=== PATIENT | male | born 1935 | race Caucasian/White ===

== ENCOUNTER 2017-12-17 15:58 | Inpatient (IN) | payer MEDICARE ==
[2017-12-17 17:03] LABS: #Basophils 0.1 thou/uL (0.0-0.2); #Eosinphils 0.4 thou/uL (0.0-0.7); #Lymphocytes 1.4 thou/uL (1.20-3.40); #Monocytes 0.3 thou/uL (0.11-0.59); %Basophils 1.4 % (0.0-1.0); %Eosinophils 7.4 % (0.0-10.0); %Lymphocytes 27.3 % (21.0-51.0); %Monocytes 5.8 % (0.0-10.0); %Neutrophils 58.1 % (42.0-75.0); Hemoglobin 12.3 g/dL (14.0-18.0); Mean Corpuscular HGB CONC 33.5 g/dL (32.0-36.0); Mean Corpuscular Hemoglobin 32.6 pg (27.0-31.0); Mean Corpuscular Volume 97.4 fL (78.0-98.0); Mean Platelet Volume 7.4 fL (7.4-10.4); Platelet Count 178 thou/uL (130-400); RBC Distribution Width 11.6 % (11.5-14.5); Red Blood Cell (RBC) Count 3.78 mill/uL (4.70-6.10); White Blood Cell (WBC) Count 5.2 thou/uL (4.8-10.8)
[2017-12-17 17:27] LABS: ALT (SGPT) 14 U/L (8-55); AST (SGOT) 16 U/L (5-34); Albumin 4.1 g/dL (3.4-4.8); Alkaline Phosphatase 64 U/L (40-150); Anion Gap 15 mmol/L (10-20); BUN (Urea Nitrogen) 29 mg/dL (8.4-25.7); Bilirubin, Total 0.4 mg/dL (0.2-1.2); CK (CPK) 66 U/L (30-200); Calc. Creatinine Clearance 0 mL/min (70-130); Calcium 9.4 mg/dL (7.8-10.44); Carbon Dioxide 24 mmol/L (23-31); Chloride 106 mmol/L (98-107); Estimated GFR-MDRD 53; Glucose 203 mg/dL (83-110); Potassium 4.8 mmol/L (3.5-5.1); Protein, Total 7.1 g/dL (5.8-8.1); Sodium 140 mmol/L (136-145)
[2017-12-17 17:31] LABS: CKMB 1.6 ng/mL (0-6.6); Troponin I 0.023 ng/mL (< 0.028)
[2017-12-17 17:54] LABS: PTT 26.5 SEC (22.9-36.1); Prothrombin Time 13.6 SEC (12.0-14.7)
[2017-12-17] MEDS ORDERED: Ondansetron HCl/PF 4 MG/2 ML Vial IVP PRN (18:42)
[2017-12-17] MEDS ORDERED: Milk Of Magnesia 30 ML UDCUP PO PRN (18:42)
[2017-12-17] MEDS ORDERED: Labetalol HCl 100 MG/20 ML VIAL SLOW IVP PRN (18:42)
[2017-12-17] MEDS ORDERED: Acetaminophen 325 MG TAB PO PRN (18:42)
--- NOTE | 2017-12-17 18:51 | CT ---
CT BRAIN WITHOUT CONTRAST: 12/17/17 HISTORY: Fall, dizziness, unsteady gait. COMPARISON: CT brain 01/14/13. FINDINGS: There is high density material within the right maxillary sinus markedly progressed from the prior ex amination. There is a large subdural hematoma on the left which measures up to 2 cm with left to righ t shift approximately 1 cm with early subfalcine herniation. Prior right frontal and parietal craniec jannette. Extensive microvascular ischemic changes, chronic. Moderate atrophy. IMPRESSION: 1. Large left convexity subdural hematoma measuring up to 2 cm with 1 cm left to right shift and early subfalcine herniation. 2. High density material in the right maxillary sinus which may reflect hemorrhage or more likel y inspissated material from chronic infection. Code IRINA Andersen at 5:32 p.m. POS: [facility]
[2017-12-17 23:58] VITALS: BMI 25.3
[2017-12-18] MEDS: Sodium Chloride 0.9% 1,000 ML IV SCH ×3 (02:48→20:29)
[2017-12-18 06:03] LABS: #Eosinphils 0.3 thou/uL (0.0-0.7); #Lymphocytes 1.3 thou/uL (1.20-3.40); #Monocytes 0.3 thou/uL (0.11-0.59); #Neutrophils 3.6 thou/uL (1.40-6.50); %Basophils 0.9 % (0.0-1.0); %Eosinophils 5.2 % (0.0-10.0); %Lymphocytes 22.8 % (21.0-51.0); %Monocytes 5.4 % (0.0-10.0); %Neutrophils 65.7 % (42.0-75.0); Hemoglobin 11.6 g/dL (14.0-18.0); Mean Corpuscular Hemoglobin 32.7 pg (27.0-31.0); Mean Corpuscular Volume 98.9 fL (78.0-98.0); Mean Platelet Volume 7.5 fL (7.4-10.4); Platelet Count 204 thou/uL (130-400); RBC Distribution Width 11.6 % (11.5-14.5); Red Blood Cell (RBC) Count 3.56 mill/uL (4.70-6.10); White Blood Cell (WBC) Count 5.5 thou/uL (4.8-10.8)
[2017-12-18 06:27] LABS: Anion Gap 11 mmol/L (10-20); BUN (Urea Nitrogen) 24 mg/dL (8.4-25.7); Calc. Creatinine Clearance 57 mL/min (70-130); Calcium 9.4 mg/dL (7.8-10.44); Carbon Dioxide 27 mmol/L (23-31); Chloride 104 mmol/L (98-107); Estimated GFR-MDRD 56; Glucose 195 mg/dL (83-110); Potassium 4.2 mmol/L (3.5-5.1); Sodium 138 mmol/L (136-145)
[2017-12-18] MEDS ORDERED: Acetaminophen 650 MG Suppository PR PRN (07:03)
[2017-12-18] MEDS ORDERED: Chloraseptic Spray 180 ml Bottle PO PRN (07:03)
[2017-12-18] MEDS ORDERED: Loratadine 10 MG TAB PO PRN (07:03)
[2017-12-18] MEDS ORDERED: Diabetic Tussin 200 MG/10 ML UDCUP PO PRN (07:03)
[2017-12-18] MEDS ORDERED: Eucerin (Mineral Oil/Petrolatum,White) 30 gm Jar TOP PRN (07:03)
[2017-12-18] MEDS ORDERED: Sodium Chloride 0.65% Nasal 44 ML BOT EA NARE PRN (07:03)
[2017-12-18] MEDS ORDERED: Artificial Tears 18 DROP/0.9 ML EA EYE PRN (07:03)
[2017-12-18] MEDS ORDERED: Ondansetron ODT 4 MG TAB SL PRN (07:03)
[2017-12-18] MEDS ORDERED: Mag-Al 1200 mg/1200 mg/30 ML UDCUP PO PRN (07:03)
[2017-12-18] MEDS ORDERED: Temazepam 15 MG CAP PO PRN (07:03)
[2017-12-18] MEDS ORDERED: Loperamide HCl 2 MG CAP PO PRN (07:03)
[2017-12-18] MEDS ORDERED: Senokot 8.6 MG TAB PO PRN (07:03)
[2017-12-18] MEDS ORDERED: Dextrose 50% Abboject 50 ML SYRINGE SLOW IVP PRN (07:04)
[2017-12-18] MEDS ORDERED: Dextrose 5% in Water 1,000 ML IV PRN (07:04)
[2017-12-18] MEDS ORDERED: HumaLOG 300 UNITS/3 ML VIAL SC PRN (07:04)
[2017-12-18] MEDS ORDERED: Pravastatin Sodium 40 MG TAB PO SCH (09:00)
[2017-12-18] MEDS ORDERED: Non-Formulary Item 1 EACH (Losartan Potassium [Losartan Potassium] 50 MG) PO SCH (09:00)
--- NOTE | 2017-12-18 09:10 | PRG ---
DATE OF SERVICE: 12/18/2017 Mr. 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 Neurologically, he has been stable. He reports [id number]-tc headache. This manifests predominantly as an unsteady gait. He does have a history of subdural hematoma evacuated on the con tralateral side. Of note, he has been on aspirin and Plavix. That has been stopped and he has also received platelets. Plan is to proceed tomorrow with jennifer hole evacuation of the subdural hematoma. I discussed the risks, benefits, and alternatives with the patient. He understands and offered info rmed consent for the procedure.
--- NOTE | 2017-12-18 09:19 | CT ---
CT BRAIN WITHOUT CONTRAST: Date: 12/18/17 HISTORY: Intracerebral hemorrhage. FINDINGS/IMPRESSION: No significant interval change is seen since the previous day's exam. POS: [facility]
[2017-12-18] MEDS: Carvedilol 6.25 MG TAB PO SCH ×2 (10:07→20:28)
[2017-12-18] MEDS: Amiodarone 200 MG TAB PO SCH (10:08)
[2017-12-18] MEDS: Losartan 25 MG TAB PO SCH (10:08)
[2017-12-18] MEDS: Famotidine/PF 20 mg/2ml Vial SLOW IVP SCH (10:10)
[2017-12-18] MEDS: Spironolactone 25 MG TAB PO SCH (10:10)
--- NOTE | 2017-12-18 12:01 | CON ---
PRIMARY CARE PHYSICIAN: Dr. Tracee Elliott. PRIMARY ATTENDING: Dr. Daron Johnson. REASON FOR CONSULTATION: Medical comanagement. HISTORY OF PRESENT ILLNESS: An 82-year-old male, who provided history that he fell down on 8. He was on Plavix for the last 10 years. Yesterday, he noticed that his right foot was dragging. He was unstable and he was feeling dizzy with some headache. He was also slightly confused and that is why his called primary care physician's office, who advised them to go to ER for evaluation. The patient denies any new fall yesterday. When I saw this morning, patient was completely fine. He denies any headache. He reports that he had similar subdural similar blood in his brain, required surgery in the past. Patient does have word finding difficulty, but patient is not attributing any new problem because he always has this type of issue with word finding difficulty. In the emergency room, the patient had CT brain and CT brain showed large left convexity subdural hem atoma with a 1 cm left to right shift and early subfalcine herniation. It also incidentally showed h igh density material in the right maxillary sinus. Patient was evaluated by neurosurgeon yesterday and he was admitted to stroke floor. This morning, w e are consulted for medical comanagement. Patient denies any chest pain, palpitation, shortness of b reath. He denies any UTI symptoms. He feels chronic constipation. He denies any diarrhea, melena, hematochezia. He denies any dysphagia. Patient reports that he gets sometimes fall at home from [facility], but he denies any palpitation or syncope or other head injury. PAST MEDICAL HISTORY: Coronary artery disease, history of NM, diabetes type 2, hypertension, dyslipi demia, diabetic neuropathy, history of intracranial bleed required craniectomy, paroxysmal atrial fib rillation, history of ischemic cardiomyopathy, and chronic systolic heart failure PAST SURGICAL HISTORY: CABG x3, bilateral knee arthroscopy, thyroidectomy, hematoma removed from the brain required a craniotomy, cardiac catheterization with stent placement. PAST PSYCHIATRIC HISTORY: Reviewed and negative. SOCIAL HISTORY: Patient is and lives at home with his . He drinks alcohol occasionally. He denies any smoking. He denies any other illicit drug abuse. FAMILY HISTORY: No strong family history of premature coronary artery disease, stroke or cancer. REVIEW OF SYSTEMS: The following complete review of systems was negative, unless otherwise mentioned in the HPI or below: Constitutional: Weight loss or gain, ability to conduct usual activities. Skin: Rash, itching. Eyes: Double vision, pain. ENT/Mouth: Nose bleeding, neck stiffness, pain, tenderness. Cardiovascular: Palpitations, dyspnea on exertion, orthopnea. Respiratory: Shortness of breath, wheezing, cough, hemoptysis, fever or night sweats. Gastrointestinal: Poor appetite, abdominal pain, heartburn, nausea, vomiting, constipation, or diarr hea. Genitourinary: Urgency, frequency, dysuria, nocturia. Musculoskeletal: Pain, swelling. Neurologic/Psychiatric: Anxiety, depression. Allergy/Immunologic: Skin rash, bleeding tendency. Please see my HPI for pertinent positive and negative. All other review of systems reviewed and nega tive except as mentioned in the HPI. ALLERGIES: No known drug allergy. CURRENT HOME MEDICATIONS: Amiodarone 100 mg daily, Coreg 6.25 mg p.o. b.i.d., Plavix 75 mg p.o. chin y, Pepcid 20 mg p.o. daily, glipizide 2.5 mg p.o. daily, losartan 50 mg p.o. daily, metformin 1000 mg p.o. b.i.d., pravastatin 40 mg p.o. daily, and Aldactone 25 mg p.o. daily. EMERGENCY ROOM COURSE: Reviewed. PHYSICAL EXAMINATION: VITAL SIGNS: On arrival to the emergency room, blood pressure 164/73, pulse 55, respiratory rate 14, temperature 98.2, saturation 96% on room air, weight 83.9 kilograms. GENERAL: Patient is currently alert, awake, no obvious acute distress. HEAD: Normocephalic. The patient does have scar from previous craniotomy. EYES: Pupils round, reactive to light. Extraocular muscle intact. ENT: Oropharynx within normal limits. Moist mucous membranes. No oral lesion. No pharyngeal eryth lavonne, no exudate. NECK: Supple, no JVD, no thyromegaly, no carotid bruit, no jugular venous distention. LUNGS: Clear to auscultation without any rhonchi or rales. CARDIAC: S1 and S2 regular. No murmur, no gallop, no rub. ABDOMEN: Soft, bowel sounds present, nontender, nondistended. No organomegaly, no mass, no suprapub ic tenderness. BACK: Unremarkable, no CVA tenderness. EXTREMITIES: Upper extremity passive movement of all joints are normal. Lower extremities: No robina a. Good peripheral pulsation. SKIN: No skin rash. HEMATOLOGIC: No lymphadenopathy. PSYCHIATRIC: Normal affect. NEUROLOGIC: The patient is alert, oriented x3. Speech is normal, but he was having word finding dif ficulty. Motor and sensation grossly intact. He does not have any obvious pronator drift. His refl exes symmetrical. Gait unable to assess. No cerebellar sign. SIGNIFICANT LABORATORY DATA: EKG showing sinus bradycardia, first degree AV block, nonspecific intra ventricular block, nonspecific ST-T changes in lateral lead. CT brain showing large left convexity s ubdural hematoma up to 2 cm with 1 cm left to right shift and subfalcine herniation, high density mat erial in the right maxillary sinus. CBC: WBC 5.2, hemoglobin 12.3, platelet 178. INR 1.0. BMP: Sodium 140, potassium 4.8, chloride 10 6, carbon dioxide 24, anion gap 15, BUN 29, creatinine 1.31, glucose 203, calcium 9.4. LFT: AST 16, ALT 14, alkaline phosphatase 64, albumin 4.1. CK 66, CK-MB 1.6, troponin 0.023, BNP 312.3. ASSESSMENT AND PLAN: 1. Acute subdural hematoma. Patient has large left-sided subdural hematoma. A 2 cm in size with 1 cm left to right shift and early subfalcine herniation. He has dragging of the right lower extremity . Neuro surgeon managing there is plan for jennifer hole evacuation tomorrow. We will monitor neurologi donna status. We will avoid any kind of blood thinners or antiplatelet medication. 2. Ischemic cardiomyopathy with chronic systolic heart failure. The patient is currently euvolemic. The patient will continue Coreg 6.25 mg p.o. b.i.d., losartan 50 mg p.o. daily, Aldactone 25 mg p.o . daily. 3. Diabetes type 2. If patient's oral intake is resumed today, then we will continue glipizide 2.5 mg p.o. daily, metformin 1000 mg p.o. b.i.d. We will also continue with insulin as per sliding scale per protocol. Diabetic diet will be given. 4. Hypertension. Continue Coreg 6.25 mg p.o. b.i.d., losartan 50 mg p.o. daily, Aldactone 25 mg p.o . daily and as p.r.n. basis hydralazine and labetalol. 5. Unspecified arrhythmia. Patient is taking Cordarone 100 mg p.o. daily, which we will continue wh ile in hospital. Mild acute kidney injury, improved with IV fluid. 6. Anemia, normocytic, normochromic with slight macrocytosis. We will continue with folic acid 1 mg p.o. daily, vitamin B12 at 1000 mcg p.o. daily. 7. Deep venous thrombosis prophylaxis. SCD boots. 8. Gastrointestinal prophylaxis. Pepcid 20 mg IV daily. 9. Code status: The patient is FULL CODE. The patient's is surrogate decision maker. Disposition plan based on clinical course. We are expecting patient's stay in hospital more than 2 m idnights. After bur hole evacuation, the patient will need PT/OT and possible placement to rehab if needed. Thank you for the consult. We will follow up with you while in hospital.
[2017-12-18] MEDS: metFORMIN 500 MG TAB PO SCH (16:58)
[2017-12-18] MEDS: Milk Of Magnesia 30 ML UDCUP PO PRN (17:51)
[2017-12-18] MEDS: Atorvastatin Calcium 10 MG TAB PO SCH (20:28)
--- NOTE | 2017-12-19 07:43 | EKG ---
Test Reason : STAT Blood Pressure : / mmHG Vent. Rate : 061 BPM Atrial Rate : 061 BPM P-R Int : 226 ms QRS Dur : 124 ms QT Int : 434 ms P-R-T Axes : 089 -23 103 degrees QTc Int : 436 ms Sinus rhythm with sinus arrhythmia with 1st degree A-V block Non-specific intra-ventricular conduction delay Poor anterior R wave progression Abnormal ECG When compared with ECG of 29-OCT-2012 02:04, T wave inversion more evident in Lateral leads QT has shortened Confirmed by DR. Laney WILLIAM ([id number]) on 12/19/2017 7:43:00 AM Referred By: ANTHONY Confirmed By:DR. Laney WILLIAM
[2017-12-19] MEDS: hydrALAZINE 20 MG/ML VIAL SLOW IVP PRN ×3 (08:49→17:32)
[2017-12-19] MEDS: Amiodarone 200 MG TAB PO SCH (08:53)
[2017-12-19] MEDS ORDERED: Thrombin 5000 UNITS/5 ML VIAL ONE (10:00)
[2017-12-19] MEDS ORDERED: Lidocaine 0.5%/Epinephrine 1:200,000 50 ml Vial ONE (10:00)
[2017-12-19] MEDS: metFORMIN 500 MG TAB PO SCH ×2 (10:10→17:29)
[2017-12-19] MEDS: Losartan 25 MG TAB PO SCH ×2 (10:11→20:11)
[2017-12-19] MEDS: Cyanocobalamin (Vitamin B-12) 1,000 MCG TAB PO SCH (10:11)
[2017-12-19] MEDS: Folic Acid 1 MG TAB PO SCH (10:11)
[2017-12-19] MEDS: Spironolactone 25 MG TAB PO SCH (10:12)
[2017-12-19] MEDS: Sodium Chloride 0.9% 1,000 ML IV SCH ×2 (10:13→15:02)
[2017-12-19] MEDS: glipiZIDE 5 MG TAB PO SCH (10:19)
--- NOTE | 2017-12-19 10:49 | PDOC.PN ---
- Subjective Encounter Start Date: 12/19/17 Encounter Start Time: 09:45 -: old records requested/rev Patient seen and examined for subdural hematoma and medical problem, he is NPO for possible surgery today, he is on IVF, family bedside. No new complaints. No overnight events - Objective Resuscitation Status: Resuscitation Status FULL:Full Resuscitation MAR Reviewed: Yes Vital Signs & Weight: Vital Signs (12 hours) Temp Pulse Resp BP BP Pulse Ox 12/19/17 09:39 165/79 H 12/19/17 08:49 56 L 180/86 H 12/19/17 08:00 97.6 F 56 L 16 180/86 H 97 12/19/17 04:00 97.6 F 56 L 16 154/63 H 97 12/19/17 00:00 98.6 F 50 L 16 139/50 L 98 Weight Weight 188 lb I&O: 12/18/17 12/19/17 12/20/17 06:59 06:59 06:59 Intake Total 249 880 Balance 249 880 Result Diagrams: 12/18/17 05:07 12/18/17 05:07 EKG Reviewed by me: Yes (nsr) Phys Exam - Physical Examination Constitutional: NAD HEENT: PERRLA, moist MMs, sclera anicteric Neck: no JVD, supple Respiratory: no wheezing, no rales, no rhonchi Cardiovascular: RRR, no significant murmur, no rub Gastrointestinal: soft, non-tender, no distention, positive bowel sounds Musculoskeletal: no edema, pulses present Neurological: non-focal, normal sensation, moves all 4 limbs Psychiatric: normal affect, A&O x 3 Skin: no rash, normal turgor Dx/Plan (1) Acute subdural hematoma Code(s): S06.5X9A - TRAUM SUBDR HEM W LOC OF UNSP DURATION, INIT Status: Acute (2) CAD (coronary artery disease) Code(s): I25.10 - ATHSCL HEART DISEASE OF [place] CORONARY ARTERY W/O ANG PCTRS Status: Chronic (3) Diabetes type 2, controlled Code(s): E11.9 - TYPE 2 DIABETES MELLITUS WITHOUT COMPLICATIONS Status: Chronic (4) Dyslipidemia Code(s): E78.5 - HYPERLIPIDEMIA, UNSPECIFIED Status: Chronic (5) Hypertension Code(s): I10 - ESSENTIAL (PRIMARY) HYPERTENSION Status: Chronic - Plan cont current plan of care, plan discussed w/ family, DVT proph w/SCDs * for his high BP, will change losartan 50 mg po bid * today possible burhole surgery for SDH * discussed with family * medication reviewed as below * symptomatic treatment. Review of Systems - Review of Systems Eyes: negative: Pain, Vision Change, Conjunctivae Inflammation, Eyelid Inflammation, Redness, Other ENT: negative: Ear Pain, Ear Discharge, Nose Pain, Nose Discharge, Nose Congestion, Mouth Pain, Mouth Swelling, Throat Pain, Throat Swelling, Other Respiratory: negative: Cough, Dry, Shortness of Breath, Hemoptysis, SOB with Excertion, Pleuritic Pain, Sputum, Wheezing Cardiovascular: negative: chest pain, palpitations, orthopnea, paroxysmal nocturnal dyspnea, edema, light headedness, other Gastrointestinal: negative: Nausea, Vomiting, Abdominal Pain, Diarrhea, Constipation, Melena, Hematochezia, Other Genitourinary: negative: Dysuria, Frequency, Incontinence, Hematuria, Retention , Other Musculoskeletal: negative: Neck Pain, Shoulder Pain, Arm Pain, Back Pain, Hand Pain, Leg Pain, Foot Pain, Other Skin: negative: Rash, Lesions, Fabian, Bruising, Other - Medications/Allergies Allergies/Adverse Reactions: Allergies Allergy/AdvReac Type Severity Reaction Status Date / Time No Known Allergies Allergy Verified 12/18/17 00:00 Medications: Current Medications Acetaminophen (Tylenol) 650 mg PO Q6H PRN PRN Reason: Fever > 101 or Headache Acetaminophen (Tylenol) 650 mg FL Q4H PRN PRN Reason: Headache/Fever or Mild Pain Al Hydroxide/Mg Hydroxide (Maalox) 15 ml PO Q4H PRN PRN Reason: Heartburn or Indigestion Amiodarone HCl (Cordarone) 100 mg PO DAILY [facility] Last Admin: 12/19/17 08:53 Dose: 100 mg Artificial Tears (Tears Naturale) 0 drop EA EYE PRN PRN PRN Reason: Dry Eyes Atorvastatin Calcium (Lipitor) 10 mg PO HS [facility] Last Admin: 12/18/17 20:28 Dose: 10 mg Carvedilol (Coreg) 6.25 mg PO BID [facility] Last Admin: 12/18/17 20:28 Dose: 6.25 mg Cyanocobalamin (Vitamin B-12) 1,000 mcg PO DAILY [facility] Last Admin: 07/05/18 10:11 Dose: 1,000 mcg Dextrose/Water (Dextrose 50%) 25 gm SLOW IVP PRN PRN PRN Reason: Hypoglycemia Famotidine (Pepcid) 20 mg SLOW IVP DAILY [facility] Last Admin: 12/18/17 10:10 Dose: 20 mg Folic Acid (Folvite) 1 mg PO DAILY [facility] Last Admin: 12/19/17 10:11 Dose: 1 mg Glipizide (Glucotrol) 2.5 mg PO DAILY [facility] Last Admin: 12/19/17 10:19 Dose: Not Given Glucagon (Glucagon) 1 mg IM PRN PRN PRN Reason: Hypoglycemia Guaifenesin (Robitussin Sf) 200 mg PO Q4H PRN PRN Reason: Cough Hydralazine HCl (Apresoline) 5 mg SLOW IVP Q15MIN PRN PRN Reason: SBP GREATER THAN 160 Last Admin: 12/19/17 08:49 Dose: 5 mg Sodium Chloride (Normal Saline 0.9%) 1,000 mls @ 80 mls/hr IV .[id number] [facility] Last Admin: 12/19/17 10:13 Dose: 1,000 mls Dextrose/Water (D5w) 1,000 mls @ 0 mls/hr IV .Q0M PRN; As Directed PRN Reason: Hypoglycemia Insulin Human Lispro (Humalog) 0 units SC .MODERATE SLIDING SC PRN PRN Reason: Moderate Correctional Scale Insulin Human Lispro (Humalog) 0 units SC .BEDTIME SLIDING SC PRN PRN Reason: Bedtime Correctional Scale Last Admin: 12/18/17 21:45 Dose: 2 unit Labetalol HCl (Normodyne) 10 mg SLOW IVP Q4H PRN PRN Reason: SBP GREATER THAN 160 Loperamide HCl (Imodium) 2 mg PO PRN PRN PRN Reason: Diarrhea/Loose Stools Loratadine (Claritin) 10 mg PO DAILYPRN PRN PRN Reason: Sinus Symptoms Losartan Potassium (Cozaar) 50 mg PO DAILY [facility] Last Admin: 12/19/17 10:11 Dose: 50 mg Magnesium Hydroxide (Milk Of Magnesium) 30 ml PO DAILYPRN PRN PRN Reason: Constipation Last Admin: 12/18/17 17:51 Dose: 30 ml Metformin HCl (Glucophage) 1,000 mg PO BID-[facility] Last Admin: 12/19/17 10:10 Dose: 1,000 mg Mineral Oil/White Petrolatum (Eucerin Cream) 0 gm TOP BIDPRN PRN PRN Reason: Dry Skin Ondansetron HCl (Zofran) 4 mg IVP Q6H PRN PRN Reason: Nausea/Vomiting Ondansetron HCl (Zofran Odt) 4 mg SL Q6H PRN PRN Reason: Nausea/Vomiting Phenol (Chloraseptic [place] 180 Ml Bot) 0 ml PO PRN PRN PRN Reason: Sore Throat Senna (Senokot) 2 tab PO HSPRN PRN PRN Reason: Constipation Sodium Chloride (Flush - Normal Saline) 10 ml IVF PRN PRN PRN Reason: Saline Flush Last Admin: 12/18/17 20:29 Dose: 10 ml Sodium Chloride ([place] Nasal [place] 0.65%) 0 ml EA NARE QIDPRN PRN PRN Reason: Nasal Congestion Spironolactone (Aldactone) 25 mg PO DAILY [facility] Last Admin: 12/19/17 10:12 Dose: 25 mg Temazepam (Restoril) 15 mg PO HSPRN PRN PRN Reason: Insomnia
[2017-12-19] MEDS ORDERED: CEFAZOLIN/Water 2 GM/20 ML SYRINGE ONE (11:28)
[2017-12-19] MEDS ORDERED: Fentanyl 100 MCG/2 ML VIAL ONE (11:46)
--- NOTE | 2017-12-19 11:49 | PRG ---
DATE OF SERVICE: 12/19/2017 Mr. Rey is an 82-year-old gentleman admitted for unsteady gait and mild headache. He had a head CT performed which shows a large left-sided subdural hematoma. Most of this is chronic in nature and subacute nature and therefore I believed amenable to bur hole drainage. Our plans are to move forwa rd with jennifer hole drainage this morning. Neurologically, he has been stable. I met with him and his family today to answer questions. After surgery today he will go to the ICU for overnight observati on. From there, he will transition to the floor. We will get PT and OT involved. If need be, he ma y need inpatient rehab, otherwise, we will work to transition him back home.
[2017-12-19] MEDS ORDERED: Ondansetron HCl/PF 4 MG/2 ML Vial ONE (12:00)
[2017-12-19] MEDS ORDERED: Lidocaine 1% PF 5 ML VIAL ONE (12:00)
[2017-12-19] MEDS ORDERED: PHENYLEPHRINE-NS 100 MCG/ML 10 ML SYRINGE ONE (12:00)
[2017-12-19] MEDS ORDERED: PROPOFOL 200 MG/20 ML VIAL ONE (12:00)
[2017-12-19] MEDS ORDERED: Glycopyrrolate 0.2 MG/ML 5 ML SYRINGE ONE (12:00)
[2017-12-19] MEDS ORDERED: Dexamethasone 20 MG/5 ML VIAL ONE (12:00)
[2017-12-19] MEDS ORDERED: ePHEDrine/0.9% NaCl/PF SYRINGE 50 mg/10 ml ONE (12:00)
[2017-12-19] MEDS ORDERED: Bacitracin Zinc Ointment 30 gm TUBE ONE (12:27)
[2017-12-19] MEDS ORDERED: Promethazine HCl 25 MG/ML VIAL SLOW IVP PRN (12:55)
[2017-12-19] MEDS ORDERED: Promethazine HCl 25 MG/ML VIAL IM PRN (12:55)
[2017-12-19] MEDS ORDERED: HYDROmorphone 2 MG/ML VIAL SLOW IVP PRN (12:55)
[2017-12-19] MEDS ORDERED: Morphine Sulfate 2 MG/ML SYRINGE SLOW IVP PRN (12:55)
[2017-12-19] MEDS ORDERED: Ondansetron HCl/PF 4 MG/2 ML Vial IVP PRN (12:55)
--- NOTE | 2017-12-19 13:03 | OP ---
DATE OF PROCEDURE: 12/17/2017 SURGEON: Daron Johnson M.D. CLINICAL DOCUMENTATION SPECIALIST: Faisal Hernández PA-C. INDICATION: Prevent neurologic decline. DIAGNOSIS: Large left acute on subacute on chronic subdural hematoma, left. PROCEDURE: Left frontal jennifer hole with evacuation of hematoma. ANESTHESIA: General. TECHNIQUE: The patient was brought into the operating room and placed under general anesthesia. He was placed on the table in supine position. A small linear incision was planned over the left fronta l bone. After prepping and draping and after an appropriate operative pause, the incision was create d. A single bur hole was placed with the binder operator. A cruciate incision was placed within the dura . There was immediate egress of subacute and chronic blood from the bur hole site. This was irrigat ed copiously with saline. A red rubber tube was then placed within the subdural space and brought ou t through a separate puncture site. The wound was then closed in anatomic layers and a pressure dres sing was applied. There were no known procedural complications.
[2017-12-19] MEDS ORDERED: Acetaminophen/Codeine 30-300mg Tablet PO PRN ×2 (14:14)
[2017-12-19] MEDS: Carvedilol 6.25 MG TAB PO SCH ×2 (14:23→20:12)
[2017-12-19] MEDS: Famotidine/PF 20 mg/2ml Vial SLOW IVP SCH (14:23)
[2017-12-19] MEDS: HumaLOG 300 UNITS/3 ML VIAL SC PRN ×2 (14:54→21:41)
[2017-12-19] MEDS: CEFAZOLIN/Water 2 GM/20 ML SYRINGE SLOW IVP SCH (20:11)
[2017-12-19] MEDS: Atorvastatin Calcium 10 MG TAB PO SCH (20:12)
[2017-12-20] MEDS: hydrALAZINE 20 MG/ML VIAL SLOW IVP PRN (02:21)
[2017-12-20] MEDS: CEFAZOLIN/Water 2 GM/20 ML SYRINGE SLOW IVP SCH ×3 (05:33→20:55)
[2017-12-20] MEDS: HumaLOG 300 UNITS/3 ML VIAL SC PRN ×2 (05:44→12:12)
--- NOTE | 2017-12-20 07:23 | PRG ---
DATE OF SERVICE: 12/20/2017 Mr. Rey is 1 day out from jennifer hole evacuation of subdural hematoma. He was on antiplatelet agen ts and had a low density subdural collection over the left hemisphere. The drain is in place and has been emptied recently. The drain output is not recorded on our electronic chart, however. The vital signs that I see recorded overnight do not include any fevers and blood pressures have been in the 130s to 160s. As I entered the room this morning, Mr. Rey is lying flat. He is awake. He is alert, he answers questions appropriately. He knows his last name, he knows where he is. He is anxious to get up and out of the hospital. I do not see a CT scan from this morning. My plan is to order a CT scan on Mr. Rey. We will assess the level decompression of the subdural space with a drain in place. I will look for the drain output to be recorded sometime this morning and then we can make a decision between operative cases when to remove the drain. Our team will shade ve it if it is due to be removed and then we gently mobilized to lunch time when he can be sitting up and eating. After lunch if he is safe with activities of daily living, we can start looking for dis charge or at least transferred to the floor.
--- NOTE | 2017-12-20 09:18 | CT ---
CT OF HEAD NONCONTRAST: COMPARISON: 12/18/17. CLINICAL HISTORY: Subdural hemorrhage, intracerebral hemorrhagic stroke, followup. FINDINGS: Interval jennifer hole formation with subdural drainage catheter placement from the left frontal approach with decreased volume of patient's known, previously diagnosed, subdural hemorrhage. There is a mix ed density residual component, with thickness of 1.5 cm currently demonstrated. There is mild rightw danitza subfalcine herniation, which measures 6 mm. Parenchymal atrophy with ex vacuo dilatation of the ventricular system is present. There is mild chronic microvascular ischemic disease. Redemonstratio n of prior right frontoparietal craniotomy. Redemonstration of mixed-density opacification of the im aged right maxillary sinus. IMPRESSION: Interval placement of a left frontal approach subdural drain with partial evacuation of patient's rec ently diagnosed subdural hemorrhage. Moderate, mixed density volume component does remain with persi stence of approximately 6 mm rightward subfalcine herniation. Continued imaging followup is warrantsandra d. POS: [facility]
[2017-12-20] MEDS: metFORMIN 500 MG TAB PO SCH ×2 (09:33→18:00)
[2017-12-20] MEDS: glipiZIDE 5 MG TAB PO SCH (09:34)
[2017-12-20] MEDS: Losartan 25 MG TAB PO SCH ×2 (09:34→20:56)
[2017-12-20] MEDS: Folic Acid 1 MG TAB PO SCH (09:35)
[2017-12-20] MEDS: Cyanocobalamin (Vitamin B-12) 1,000 MCG TAB PO SCH ×2 (09:35→09:39)
[2017-12-20] MEDS: Spironolactone 25 MG TAB PO SCH (09:35)
[2017-12-20] MEDS: Amiodarone 200 MG TAB PO SCH (09:36)
[2017-12-20] MEDS: Carvedilol 6.25 MG TAB PO SCH ×2 (09:38→20:56)
[2017-12-20] MEDS: Sodium Chloride 0.9% 1,000 ML IV SCH ×2 (09:39→21:15)
[2017-12-20] MEDS: Famotidine/PF 20 mg/2ml Vial SLOW IVP SCH (09:43)
--- NOTE | 2017-12-20 11:20 | PDOC.PN ---
- Subjective Encounter Start Date: 12/20/17 Encounter Start Time: 10:00 -: old records requested/rev Patient seen and examined. No new complaints. No overnight events s/p bur hole surgery - Objective Resuscitation Status: Resuscitation Status FULL:Full Resuscitation MAR Reviewed: Yes Vital Signs & Weight: Vital Signs (12 hours) Temp Pulse Resp BP 12/20/17 11:00 16 12/20/17 09:38 176/77 H 12/20/17 08:00 98.7 F 12/20/17 04:40 76 168/75 H 12/20/17 04:00 98.2 F 12/20/17 02:21 65 167/76 H 12/20/17 00:00 97.8 F Weight Admit Weight 186 lb 11.704 oz Weight 188 lb 3.2 oz Most Recent Monitor Data Heart Rate from ECG 65 NIBP 159/72 NIBP BP-Mean 84 Respiration from ECG 27 SpO2 98 I&O: 12/19/17 12/20/17 12/21/17 06:59 06:59 06:59 Intake Total 3215 420 Output Total 1550 900 Balance 1665 -480 Result Diagrams: 12/18/17 05:07 12/18/17 05:07 Additional Labs: Accuchecks 12/20/17 12/19/17 12/19/17 05:43 21:23 17:29 POC Glucose 166 H 222 H 145 H 12/19/17 12/19/17 12/18/17 14:37 06:09 21:37 POC Glucose 187 H 136 H 234 H 12/18/17 12/18/17 16:44 10:59 POC Glucose 216 H 169 H Radiology Reviewed by me: Yes (CT brain) EKG Reviewed by me: Yes (nsr) Phys Exam - Physical Examination Constitutional: NAD drain+ HEENT: PERRLA, moist MMs, sclera anicteric Neck: no JVD, supple Respiratory: no wheezing, no rales, no rhonchi Cardiovascular: RRR, no significant murmur, no rub Gastrointestinal: soft, non-tender, no distention, positive bowel sounds Musculoskeletal: no edema, pulses present Neurological: non-focal, normal sensation Lymphatic: no nodes Psychiatric: normal affect, A&O x 3 Skin: no rash, normal turgor Dx/Plan (1) Acute subdural hematoma Code(s): S06.5X9A - TRAUM SUBDR HEM W LOC OF UNSP DURATION, INIT Status: Acute Comment: s/p bur-hole surgery (2) CAD (coronary artery disease) Code(s): I25.10 - ATHSCL HEART DISEASE OF [place] CORONARY ARTERY W/O ANG PCTRS Status: Chronic (3) Diabetes type 2, controlled Code(s): E11.9 - TYPE 2 DIABETES MELLITUS WITHOUT COMPLICATIONS Status: Chronic (4) Dyslipidemia Code(s): E78.5 - HYPERLIPIDEMIA, UNSPECIFIED Status: Chronic (5) Hypertension Code(s): I10 - ESSENTIAL (PRIMARY) HYPERTENSION Status: Chronic - Plan cont current plan of care * medication reviewed as below * symptomatic treatment * continue post operative care as per neurosurgery * medically stable for now. Review of Systems - Review of Systems ENT: negative: Ear Pain, Ear Discharge, Nose Pain, Nose Discharge, Nose Congestion, Mouth Pain, Mouth Swelling, Throat Pain, Throat Swelling, Other Respiratory: negative: Cough, Dry, Shortness of Breath, Hemoptysis, SOB with Excertion, Pleuritic Pain, Sputum, Wheezing Cardiovascular: negative: chest pain, palpitations, orthopnea, paroxysmal nocturnal dyspnea, edema, light headedness, other Gastrointestinal: negative: Nausea, Vomiting, Abdominal Pain, Diarrhea, Constipation, Melena, Hematochezia, Other Genitourinary: negative: Dysuria, Frequency, Incontinence, Hematuria, Retention , Other Musculoskeletal: negative: Neck Pain, Shoulder Pain, Arm Pain, Back Pain, Hand Pain, Leg Pain, Foot Pain, Other Skin: negative: Rash, Lesions, Fabian, Bruising, Other - Medications/Allergies Allergies/Adverse Reactions: Allergies Allergy/AdvReac Type Severity Reaction Status Date / Time No Known Allergies Allergy Verified 12/18/17 00:00 Medications: Current Medications Acetaminophen (Tylenol) 650 mg PO Q6H PRN PRN Reason: Fever > 101 or Headache Acetaminophen (Tylenol) 650 mg WI Q4H PRN PRN Reason: Headache/Fever or Mild Pain Acetaminophen/Codeine Phosphate (Tylenol #3) 1 tab PO Q3H PRN PRN Reason: Mild Pain (1-3) Acetaminophen/Codeine Phosphate (Tylenol #3) 2 tab PO Q3H PRN PRN Reason: Moderate Pain (4-6) Al Hydroxide/Mg Hydroxide (Maalox) 15 ml PO Q4H PRN PRN Reason: Heartburn or Indigestion Amiodarone HCl (Cordarone) 100 mg PO DAILY [facility] Last Admin: 12/20/17 09:36 Dose: 100 mg Artificial Tears (Tears Naturale) 0 drop EA EYE PRN PRN PRN Reason: Dry Eyes Atorvastatin Calcium (Lipitor) 10 mg PO HS [facility] Last Admin: 12/19/17 20:12 Dose: 10 mg Carvedilol (Coreg) 6.25 mg PO BID [facility] Last Admin: 12/20/17 09:38 Dose: 6.25 mg Cefazolin Sodium (Ancef) 2 gm SLOW IVP 0400,1200,2000 [facility] Last Admin: 12/20/17 05:33 Dose: 2 gm Cyanocobalamin (Vitamin B-12) 1,000 mcg PO DAILY [facility] Last Admin: 12/20/17 09:39 Dose: 1,000 mcg Dextrose/Water (Dextrose 50%) 25 gm SLOW IVP PRN PRN PRN Reason: Hypoglycemia Famotidine (Pepcid) 20 mg SLOW IVP DAILY [facility] Last Admin: 12/20/17 09:43 Dose: 20 mg Folic Acid (Folvite) 1 mg PO DAILY [facility] Last Admin: 12/20/17 09:35 Dose: 1 mg Glipizide (Glucotrol) 2.5 mg PO DAILY [facility] Last Admin: 12/20/17 09:34 Dose: 2.5 mg Glucagon (Glucagon) 1 mg IM PRN PRN PRN Reason: Hypoglycemia Guaifenesin (Robitussin Sf) 200 mg PO Q4H PRN PRN Reason: Cough Hydralazine HCl (Apresoline) 5 mg SLOW IVP Q15MIN PRN PRN Reason: SBP GREATER THAN 160 Last Admin: 12/20/17 02:21 Dose: 5 mg Sodium Chloride (Normal Saline 0.9%) 1,000 mls @ 80 mls/hr IV .[id number] [facility] Last Admin: 12/20/17 09:39 Dose: 1,000 mls Dextrose/Water (D5w) 1,000 mls @ 0 mls/hr IV .Q0M PRN; As Directed PRN Reason: Hypoglycemia Insulin Human Lispro (Humalog) 0 units SC .MODERATE SLIDING SC PRN PRN Reason: Moderate Correctional Scale Last Admin: 12/20/17 05:44 Dose: 2 unit Insulin Human Lispro (Humalog) 0 units SC .BEDTIME SLIDING SC PRN PRN Reason: Bedtime Correctional Scale Last Admin: 12/18/17 21:45 Dose: 2 unit Labetalol HCl (Normodyne) 10 mg SLOW IVP Q4H PRN PRN Reason: SBP GREATER THAN 160 Last Admin: 12/20/17 04:40 Dose: 10 mg Loperamide HCl (Imodium) 2 mg PO PRN PRN PRN Reason: Diarrhea/Loose Stools Loratadine (Claritin) 10 mg PO DAILYPRN PRN PRN Reason: Sinus Symptoms Losartan Potassium (Cozaar) 50 mg PO BID [facility] Last Admin: 12/20/17 09:34 Dose: 50 mg Magnesium Hydroxide (Milk Of Magnesium) 30 ml PO DAILYPRN PRN PRN Reason: Constipation Last Admin: 12/18/17 17:51 Dose: 30 ml Metformin HCl (Glucophage) 1,000 mg PO BID[facility] Last Admin: 12/20/17 09:33 Dose: 1,000 mg Mineral Oil/White Petrolatum (Eucerin Cream) 0 gm TOP BIDPRN PRN PRN Reason: Dry Skin Morphine Sulfate (Morphine) 2 mg SLOW IVP Q1HR PRN PRN Reason: Moderate breakthrough pain Ondansetron HCl (Zofran) 4 mg IVP Q6H PRN PRN Reason: Nausea/Vomiting Ondansetron HCl (Zofran Odt) 4 mg SL Q6H PRN PRN Reason: Nausea/Vomiting Phenol (Chloraseptic [place] 180 Ml Bot) 0 ml PO PRN PRN PRN Reason: Sore Throat Senna (Senokot) 2 tab PO HSPRN PRN PRN Reason: Constipation Sodium Chloride ([place] Nasal [place] 0.65%) 0 ml EA NARE QIDPRN PRN PRN Reason: Nasal Congestion Sodium Chloride (Flush - Normal Saline) 10 ml IVF PRN PRN PRN Reason: Saline Flush Spironolactone (Aldactone) 25 mg PO DAILY [facility] Last Admin: 12/20/17 09:35 Dose: 25 mg Temazepam (Restoril) 15 mg PO HSPRN PRN PRN Reason: Insomnia
[2017-12-20] MEDS: Milk Of Magnesia 30 ML UDCUP PO PRN (18:00)
[2017-12-20] MEDS: Atorvastatin Calcium 10 MG TAB PO SCH (20:55)
[2017-12-21] MEDS: CEFAZOLIN/Water 2 GM/20 ML SYRINGE SLOW IVP SCH (04:57)
[2017-12-21 07:36] LABS: Hemoglobin 12.1 g/dL (14.0-18.0); Mean Corpuscular HGB CONC 34.2 g/dL (32.0-36.0); Mean Corpuscular Hemoglobin 33.2 pg (27.0-31.0); Mean Corpuscular Volume 97.1 fL (78.0-98.0); Red Blood Cell (RBC) Count 3.66 mill/uL (4.70-6.10); White Blood Cell (WBC) Count 7.1 thou/uL (4.8-10.8)
[2017-12-21 07:53] LABS: Band 4 % (5-11); Eosinophils 3 % (0-10); Lymphocytes 23 % (21-51); MDiff Complete? YES; Metamyelocyte 1 % (0-0); Monocytes 7 % (0-10); Neutrophil 57 % (42-75); Platelet Count 176 thou/uL (130-400); Reactive Lymphocytes 3 % (0-10)
[2017-12-21 07:54] LABS: Anion Gap 15 mmol/L (10-20); BUN (Urea Nitrogen) 26 mg/dL (8.4-25.7); Calc. Creatinine Clearance 56 mL/min (70-130); Carbon Dioxide 22 mmol/L (23-31); Chloride 103 mmol/L (98-107); Estimated GFR-MDRD 55; Glucose 135 mg/dL (83-110); Potassium 4.6 mmol/L (3.5-5.1); Sodium 135 mmol/L (136-145)
--- NOTE | 2017-12-21 08:12 | PRG ---
DATE OF SERVICE: 12/21/2017 NEUROSURGERY NOTE SUBJECTIVE: Mr. Rey is 2 days out from jennifer hole evacuation of subdural hematoma. We took the d rain out yesterday and transferred him out of the ICU to floor care. Mr. Rey has been doing well . He is ambulatory yesterday, he has been tolerating a general diet. This morning, he verbalizes th at he wants to go home. On my examination, Mr. Rey is doing quite well and I do not find any new neurological deficits. If he is ambulatory, tolerating a general diet, voiding spontaneously and safe walking, then he can b e discharged this morning.
[2017-12-21 08:17] VITALS: TEMP 97.6
[2017-12-21] MEDS ORDERED: Famotidine 20 MG TAB PO SCH (09:00)
[2017-12-21] MEDS: metFORMIN 500 MG TAB PO SCH (10:12)
[2017-12-21 10:17] VITALS: BP 118/58
[2017-12-21] MEDS: Spironolactone 25 MG TAB PO SCH (10:17)
[2017-12-21] MEDS: Amiodarone 200 MG TAB PO SCH (10:17)
[2017-12-21] MEDS: glipiZIDE 5 MG TAB PO SCH (10:17)
[2017-12-21] MEDS: Carvedilol 6.25 MG TAB PO SCH (10:17)
[2017-12-21] MEDS: Losartan 25 MG TAB PO SCH (10:17)
[2017-12-21] MEDS: Folic Acid 1 MG TAB PO SCH (10:17)
--- NOTE | 2017-12-21 11:21 | DIS ---
DATE OF ADMISSION: 12/17/2017 DATE OF DISCHARGE: 12/21/2017 PRIMARY CARE PHYSICIAN: Dr. Earl Easley. DISCHARGE DISPOSITION: Home. PRIMARY DISCHARGE DIAGNOSIS: Subdural hematoma, status post jennifer hole evacuation. SECONDARY DISCHARGE DIAGNOSES: Hypertension, dyslipidemia, diabetes type 2, coronary artery disease. PRIMARY PROCEDURE/OPERATION: Jennifer hole evacuation. RADIOLOGICAL INVESTIGATION: CT brain showed subdural hematoma. SIGNIFICANT LABORATORY DATA: WBC 7.1, hemoglobin 12.1, platelet 176, INR 1.0. Sodium 135, potassium 4.6, BUN 26, creatinine 1.27 and calcium 9.0. DISCHARGE MEDICATIONS: Amiodarone 100 mg p.o. daily, Coreg 6.25 mg p.o. b.i.d., Pepcid 20 mg p.o. da valentín, Glucotrol 2.5 mg p.o. daily, losartan 50 mg p.o. daily, metformin 1000 mg p.o. b.i.d., pravastat in 40 mg p.o. daily and Aldactone 25 mg p.o. daily. CONTRAINDICATIONS: The patient is not on antiplatelet medication because of subdural hematoma. TEST RESULTS PENDING ON DISCHARGE: None. ALLERGIES: No known drug allergy. DISCHARGE PLAN: Post hospital, patient will follow up with Dr. Tracee Elliott and Dr. Johnson as instru cted. HOSPITAL COURSE: An 82-year-old male who was admitted by Dr. Johnson for subdural hematoma. Patient w as admitted under neurosurgeon and Sound Team was consulted for medical comanagement. This patient h ad a fall and subsequently he was having headache and altered mental status. He was found with left- sided subdural hematoma with midline shift and early subfalcine herniation. The patient required bur r hole evacuation. After surgery, he was observed in CCU for 24 hours and subsequently he was transf erred to surgical floor. His drain was removed. His surgical site is clean and healthy. The patien t is ambulatory. His pain is controlled. Today, neurosurgeon planning to discharge him. I specific ally advised this patient to discontinue Plavix until clearance from neurosurgeon. Rest of medicatio n, he will continue as per previous. Rolling walker was arranged. He is hemodynamically stable. The patient is seen and examined at [facility] today. PHYSICAL EXAMINATION: VITAL SIGNS: Currently, temperature 97.6, pulse 56, respiratory rate 18, saturation 96% on room air, blood pressure 118/58, weight 188 pounds. GENERAL: Patient is currently alert, awake, no obvious acute distress. HEAD: Surgical site is clean and intact with dressing. EYES: Pupils round and reactive to light. ENT: Oropharynx within normal limit. NECK: Supple, no JVD, no thyromegaly, no carotid bruit. LUNGS: Clear to auscultation without any rhonchi or rales. CARDIAC: S1 and S2 regular without any murmur. ABDOMEN: Soft and benign without any tenderness. EXTREMITIES: No edema. NEUROLOGIC: Nonfocal examination. His gait is stable. REVIEW OF SYSTEMS: Reviewed with him and negative. Patient is planned for discharge by primary team and we will sign off.
--- NOTE | 2017-12-21 15:49 | EKG ---
Test Reason : SYNCOPE Blood Pressure : / mmHG Vent. Rate : 053 BPM Atrial Rate : 053 BPM P-R Int : 220 ms QRS Dur : 128 ms QT Int : 446 ms P-R-T Axes : 071 -18 116 degrees QTc Int : 418 ms Sinus bradycardia with sinus arrhythmia with 1st degree A-V block Non-specific intra-ventricular conduction block T wave abnormality, consider lateral ischemia Abnormal ECG Confirmed by BRENNA KUMAR, SHAHEDE ([id number]), editor managing newspaper JOSE DANIEL SINGH ([id number]) on 12/21/2017 3:48:55 PM Referred By: Confirmed By:SHAHEED CEJA MD
== END 2017-12-21 08:45 | disposition home or self-care (01) | DRG 25 ==
LOC: ERS 15:58 → 2SE 22:56 → CCU 12-19 12:31 → SURG A 12-20 13:09
PROVIDERS: ADMIT Neurological Surgery; ATTEND Neurological Surgery
PROC: 00C43ZZ Extirpation of Matter from Intracranial Subdural Space, Percutaneous Approach (ICD-10-PCS; principal; 2017-12-17)
DX: S06.5X9A Traumatic subdural hemorrhage with loss of consciousness of unspecified duration, initial encounter (principal); G93.5 Compression of brain; I50.22 Chronic systolic (congestive) heart failure; E78.5 Hyperlipidemia, unspecified; I25.10 Atherosclerotic heart disease of native coronary artery without angina pectoris; Z79.01 Long term (current) use of anticoagulants; I25.2 Old myocardial infarction; E11.40 Type 2 diabetes mellitus with diabetic neuropathy, unspecified; I48.0 Paroxysmal atrial fibrillation; I25.5 Ischemic cardiomyopathy; I11.0 Hypertensive heart disease with heart failure; Z95.1 Presence of aortocoronary bypass graft; Z95.5 Presence of coronary angioplasty implant and graft; E89.0 Postprocedural hypothyroidism; D64.9 Anemia, unspecified; W01.0XXA Fall on same level from slipping, tripping and stumbling without subsequent striking against object, initial encounter; Y93.9 Activity, unspecified; Y92.9 Unspecified place or not applicable; Y99.9 Unspecified external cause status
CPT/HCPCS: 36415; 36416; 36430; 70450; 80048; 80053; 82550; 82553; 83880; 84484; 85025; 85610; 85730; 86850; 86900; 86901; 93005; 93010; G8978-GP-CK; G8979-GP-CJ; G8987-GO-CI; G8988-GO-CI; G8989-GO-CI; J0360; J1100; J2001; J2405; J2704; J3010; P9035; S0028

== ENCOUNTER 2018-01-02 15:32 | Outpatient (CLI) | payer MEDICARE ==
--- NOTE | 2018-01-02 15:58 | CT ---
CT BRAIN WITHOUT CONTRAST: Date: 01/02/18 HISTORY: Follow-up subdural hematoma. COMPARISON: CT dated 12/20/17. FINDINGS: The left subdural hematoma has slightly increased in size, although is not as hyperdense as the prior examination, measures up to 14.0 mm at the level of the superior aspect of the lateral ventricles, p reviously approximately 12.0 mm. The drain has been removed. Small locule of gas anteriorly, although improved. Prior right craniotomy changes. There is some midline shift, approximately 1.0 cm, measure d at the foramen of Monro, slightly increased. No acute infarction. Chronic right maxillary sinusitis. IMPRESSION: Mild size increase of the left subdural hematoma and left to right midline shift. POS: [facility]
== END 2018-01-02 15:33 | disposition home or self-care (01) ==
LOC: TBSIIMAG 15:32
PROVIDERS: ATTEND Neurological Surgery
DX: S06.5X0A Traumatic subdural hemorrhage without loss of consciousness, initial encounter (principal)
CPT/HCPCS: 70450

== ENCOUNTER 2018-01-06 17:46 | Observation (INO) | payer MEDICARE ==
[2018-01-06 18:31] LABS: #Eosinphils 0.3 thou/uL (0.0-0.7); #Lymphocytes 1.4 thou/uL (1.20-3.40); #Monocytes 0.4 thou/uL (0.11-0.59); #Neutrophils 3.9 thou/uL (1.40-6.50); %Basophils 0.7 % (0.0-1.0); %Eosinophils 4.7 % (0.0-10.0); %Lymphocytes 23.5 % (21.0-51.0); %Neutrophils 65.1 % (42.0-75.0); Hemoglobin 11.9 g/dL (14.0-18.0); Mean Corpuscular HGB CONC 34.5 g/dL (32.0-36.0); Mean Corpuscular Volume 95.6 fL (78.0-98.0); Mean Platelet Volume 7.4 fL (7.4-10.4); Platelet Count 221 thou/uL (130-400); RBC Distribution Width 11.9 % (11.5-14.5); Red Blood Cell (RBC) Count 3.61 mill/uL (4.70-6.10); White Blood Cell (WBC) Count 5.9 thou/uL (4.8-10.8)
[2018-01-06 18:49] LABS: INR-International Normal Ratio 0.9; Prothrombin Time 12.1 SEC (12.0-14.7)
[2018-01-06 18:58] LABS: ALT (SGPT) 12 U/L (8-55); AST (SGOT) 22 U/L (5-34); Albumin 4.1 g/dL (3.4-4.8); Alkaline Phosphatase 66 U/L (40-150); Anion Gap 19 mmol/L (10-20); BUN (Urea Nitrogen) 32 mg/dL (8.4-25.7); Bilirubin, Total 0.4 mg/dL (0.2-1.2); CKMB 1.1 ng/mL (0-6.6); Calc. Creatinine Clearance 0 mL/min (70-130); Calcium 9.3 mg/dL (7.8-10.44); Carbon Dioxide 20 mmol/L (23-31); Chloride 104 mmol/L (98-107); Estimated GFR-MDRD 45; Globulin 3.6 g/dL (2.4-3.5); Glucose 127 mg/dL (83-110); Potassium 5.6 mmol/L (3.5-5.1); Protein, Total 7.7 g/dL (5.8-8.1); Sodium 137 mmol/L (136-145); Troponin I Less than 0.010 ng/mL (< 0.028)
[2018-01-06] MEDS ORDERED: Dextrose 50% Abboject 50 ML SYRINGE ONE (19:49)
[2018-01-06] MEDS ORDERED: Insulin Regular 300 UNITS/3 ML VIAL ONE (19:49)
--- NOTE | 2018-01-06 21:05 | RAD ---
ONE VIEW CHEST: HISTORY: Fall. Syncope. The patient is now aphasic. COMPARISON: 10/29/2012 FINDINGS: A left-sided transvenous defibrillator terminates over the region of the right ventricle. The heart is enlarged. Atherosclerosis of the aorta is noted. There are sternotomy wires. The pulmonary vessels and hilum are normal. The right costophrenic angle is clear. Blunting of the left costophrenic angle is noted. There is no pneumothorax. Stable surgical clips and stable left r otator cuff repair. IMPRESSION: 1. Blunting of the left costophrenic angle, likely due to small effusion or atelectasis. 2. Atherosclerosis. 3. Cardiomegaly. POS: [facility]
--- NOTE | 2018-01-06 21:40 | CT ---
CT BRAIN WITHOUT CONTRAST: HISTORY: Fall. Aphasia. COMPARISON: 01/02/2018 TECHNIQUE: A noncontrast head CT is performed from the skull base to the skull vertex. FINDINGS: Stable post surgical changes involving the calvarium. Persistent pneumocephalus along the left front al convexity. Redemonstration of a predominantly hypodense left extraaxial collection with a small p eripheral rind of hyperdensity. Findings represent a resolving subdural hematoma. Currently, the ma ximum diameter is 1.6 cm. There is mass effect and effacement of the left frontal, temporal, and par ietal sulci. There is mild asymmetry of the right ventricular system with respect to the contralater al side. The basilar cisterns are patent. There is 6 mm of left to right subfalcine herniation. The degree o f subfalcine herniation has not changed. Previously, there was also 6 mm of subfalcine herniation. Acute parenchymal hemorrhage is not appreciated. Inspissated mucus versus fungal infection of the right maxillary sinus is noted. Adequate aeration o f the remaining paranasal sinuses and mastoid air cells. Intact calvarium. IMPRESSION: 1. Interval evolutionary changes involving a left-sided subdural hematoma. There is persistent asso ciated [id number] subfalcine herniation. 2. Stable asymmetry with enlargement of the right ventricular system. Neurosurgical consultation may be beneficial. POS: [facility]
[2018-01-06] MEDS ORDERED: Ondansetron HCl/PF 4 MG/2 ML Vial IVP PRN (23:44)
[2018-01-06] MEDS ORDERED: Acetaminophen 325 MG TAB PO PRN (23:44)
[2018-01-07 02:58] VITALS: BMI 27.0
[2018-01-07 05:28] LABS: #Eosinphils 0.2 thou/uL (0.0-0.7); #Lymphocytes 1.9 thou/uL (1.20-3.40); #Monocytes 0.4 thou/uL (0.11-0.59); #Neutrophils 3.2 thou/uL (1.40-6.50); %Basophils 0.8 % (0.0-1.0); %Eosinophils 4.1 % (0.0-10.0); %Lymphocytes 32.3 % (21.0-51.0); %Monocytes 7.5 % (0.0-10.0); %Neutrophils 55.2 % (42.0-75.0); Hemoglobin 11.7 g/dL (14.0-18.0); Mean Corpuscular HGB CONC 33.7 g/dL (32.0-36.0); Mean Corpuscular Hemoglobin 32.3 pg (27.0-31.0); Mean Corpuscular Volume 95.9 fL (78.0-98.0); Mean Platelet Volume 6.9 fL (7.4-10.4); Platelet Count 226 thou/uL (130-400); Red Blood Cell (RBC) Count 3.61 mill/uL (4.70-6.10); White Blood Cell (WBC) Count 5.9 thou/uL (4.8-10.8)
[2018-01-07 06:19] LABS: Anion Gap 15 mmol/L (10-20); BUN (Urea Nitrogen) 25 mg/dL (8.4-25.7); Calc. Creatinine Clearance 59 mL/min (70-130); Calcium 9.2 mg/dL (7.8-10.44); Carbon Dioxide 21 mmol/L (23-31); Chloride 105 mmol/L (98-107); Estimated GFR-MDRD 60; Glucose 116 mg/dL (83-110); Potassium 4.4 mmol/L (3.5-5.1); Sodium 137 mmol/L (136-145)
[2018-01-07] MEDS ORDERED: HumaLOG 300 UNITS/3 ML VIAL SC PRN (07:12)
[2018-01-07] MEDS ORDERED: Dextrose 5% in Water 1,000 ML IV PRN (07:12)
[2018-01-07] MEDS ORDERED: Dextrose 50% Abboject 50 ML SYRINGE SLOW IVP PRN (07:12)
[2018-01-07] MEDS ORDERED: Acetaminophen 325 MG TAB PO PRN (07:14)
[2018-01-07] MEDS ORDERED: Ondansetron ODT 4 MG TAB PO PRN (07:14)
--- NOTE | 2018-01-07 08:43 | CON ---
DATE OF CONSULTATION: 01/06/2018 ATTENDING PHYSICIAN: Dr. Desean Newell. HISTORY OF PRESENT ILLNESS: Patient is an 82-year-old male status post left acute on chronic subdural hematoma status post jennifer hole for evacuation on 12/19/2017 who presents tonight per family for complaints of intermittent speech changes and syncopal episode this evening. Patient reports last week, he began having intermittent speech changes where he had difficulty finding his words as well as some right lower extremity weakness and some gait instability. He was seen in postoperative followup by Wayne Hernández on 2017 for evaluation of these complaints and postoperative recheck. CT head was repeated at that time which showed reaccumulation of blood products which appeared to be subacute/chronic in nature. There did not appear to be any acute blood at that time. His symptoms seem to be gradually improving and he was scheduled for repeat CT head on 01/09/2018; however[facility]. His reports this evening he was standing next to dresser when he suddenly passed out for a short period of time. The patient denies any pain. He has no memory of this event. I am seeing the patient at the bedside in the emergency department. He is awake, alert, no acute distress. Pupils are equal and reactive. No focal neurologic deficits on my exam. His repeat CT head showed stable left subacute/chronic subdural hematoma. PAST MEDICAL HISTORY: Coronary artery disease, acute AL, type 2 diabetes, hypertension, hyperlipidemia, diabetic neuropathy, history of intracranial hemorrhage requiring craniotomy, atrial fibrillation, ischemic cardiomyopathy, congestive heart failure, subdural hematoma. PAST SURGICAL HISTORY: CABG x3, bilateral knee arthroscopy, thyroidectomy, craniotomy, cardiac catheterization with stent placement, jennifer hole on 2017 for a subdural hematoma evacuation. SOCIAL HISTORY: Patient lives at home with his . He does not smoke, drink or use any drugs. FAMILY HISTORY: Noncontributory. REVIEW OF SYSTEMS: Per HPI. ALLERGIES: Patient has no known drug allergies. PHYSICAL EXAMINATION: VITAL SIGNS: BP is 152/65, respiration rate is 14, O2 patient 97% on room air, pulse is 60, temperature is 98.3. CONSTITUTIONAL: Awake, alert, in no acute distress. HEAD: Well healing jennifer hole vertical incision. No redness, swelling or wound dehiscence or drainage. EYES: PERRLA. Extraocular movements intact. ENT: Oral mucosa is pink, intact and moist. The patient has a normal voice. NECK: Nontender to palpation. Free active range of motion, no meningismus or nuchal rigidity. CARDIOVASCULAR: Regular rate and rhythm. RESPIRATORY: The patient is breathing comfortably with symmetric chest expansion. MUSCULOSKELETAL: He has free active range of motion of all extremities, no deformities. NEUROLOGIC: The patient is A and O x4. He has normal speech. No focal neurologic deficits are appreciated. ASSESSMENT AND PLAN: This is an 82-year-old male status post subdural hematoma evacuation with jennifer hole by Dr. Johnson and Dr. Faisal Hernández on 12/19/2017 who presents tonight following a syncopal episode and intermittent speech changes. He was seen last week for similar complaints with a CT head, which showed reaccumulation of blood products. Today, a CT remains unchanged and shows chronic left-sided subdural hematoma. At this point, the patient appears to be at his baseline. He will be admitted to medical service for further evaluation of the syncope episode. I will continue to recommend no antiplatelet or anticoagulants. Head of the bed should be elevated to 30 degrees. I will notify Dr. Johnson and Desean Hernández about the patient's admission. [facility]
[2018-01-07] MEDS: metFORMIN 500 MG TAB PO SCH ×2 (08:50→19:52)
[2018-01-07] MEDS ORDERED: Famotidine 20 MG TAB PO SCH (09:00)
[2018-01-07] MEDS ORDERED: Losartan 25 MG TAB PO SCH (09:00)
[2018-01-07] MEDS ORDERED: Non-Formulary Item 1 EACH (Metformin Hcl [Metformin Hcl] 1,000 MG) PO SCH (09:00)
[2018-01-07] MEDS ORDERED: Amiodarone 200 MG TAB PO SCH (09:00)
[2018-01-07] MEDS ORDERED: Carvedilol 6.25 MG TAB PO SCH (09:00)
[2018-01-07] MEDS ORDERED: Pravastatin Sodium 40 MG TAB PO SCH (09:00)
[2018-01-07] MEDS ORDERED: Non-Formulary Item 1 EACH (Losartan Potassium [Losartan Potassium] 50 MG) PO SCH (09:00)
[2018-01-07] MEDS ORDERED: glipiZIDE 5 MG TAB PO SCH (09:00)
[2018-01-07] MEDS ORDERED: Spironolactone 25 MG TAB PO SCH (09:00)
--- NOTE | 2018-01-07 09:53 | HP ---
PRIMARY CARE PHYSICIAN: Dr. Tracee Elliott. [facility]. HISTORY OF PRESENT ILLNESS: The patient states he had a significant aphasia for about an hour yester day. No visual change, no focal weakness. He notes he fell yesterday morning. He was leaning in th e wall of his bathroom. He is not sure that he lost consciousness, but he found himself on the floor . He has no headache. It is pertinent that he was recently discharged from the hospital on 12/22/19 18 after a subdural hematoma. His aspirin and Plavix have been stopped since then. PAST MEDICAL HISTORY: Pertinent for coronary artery disease with a history of myocardial infarction, type 2 diabetes with diabetic neuropathy, hypertension, dyslipidemia, paroxysmal atrial fibrillation , cardiomyopathy and the recent intracranial bleed requiring craniectomy. PAST SURGICAL HISTORY: Include coronary artery bypass graft, bilateral knee arthroscopic surgery, an d thyroidectomy. CURRENT MEDICATIONS: Metformin 1000 mg twice a day, glipizide 2.5 mg a day, spironolactone 25 mg a d ay, pravastatin 40 mg a day, losartan 50 mg a day, Pepcid 20 mg a day, Coreg 6.25 mg twice a day, and amiodarone 100 mg a day. ALLERGIES: None. FAMILY HISTORY: No strong premature coronary artery disease or stroke. SOCIAL HISTORY: , lives at home with his , his next of kin. No tobacco. Very occasional alcohol. CODE STATUS: FULL. REVIEW OF SYSTEMS: Other than the episode yesterday. No dizziness or fainting, no fever or chills. Eyes: No double vision, blurred vision. Ear, nose, and throat: No ear pain or drainage. No nasal bleeding. No trouble swallowing. Cardiac: No chest pain, orthopnea or paroxysmal nocturnal dyspne a. Respirations: No cough, wheezing or asthma. Gastrointestinal: No nausea, vomiting, abdominal p ain. He does have frequent diarrhea. Genitourinary: He states he had difficult urination last nigh t, but everything is adequate this morning. No blood in his urine. Musculoskeletal: No focal weakn ess or pain in his arms or legs. Neurologic: Had subdural hematoma recently, recovered, had a crani ectomy. Psychiatric: No anxiety or depression. Skin: No bruising, bleeding or rash. Heme/Lymph: No tender or swollen lymph nodes in axilla, inguinal or cervical area. PHYSICAL EXAMINATION: VITAL SIGNS: Blood pressure 139/64, pulse 56, temperature 98, respirations 18. HEENT: Reveal pupils equal, round, and reactive. Extraocular movements are intact. Sclerae white. Tympanic membranes clear. Nose clear. Throat is clear. NECK: Supple, without jugular venous distention, adenopathy, thyromegaly. CHEST: Clear to auscultation and percussion. HEART: Had a regular rate and rhythm. First and second heart sounds were clear. There are no appre ciated murmurs or gallops. ABDOMEN: Soft, bowel sounds are normal. There is no hepatosplenomegaly, no mass, no rebound, no bru its. EXTREMITIES: Reveal no cyanosis, clubbing or edema. PULSES: Carotid, radial, femoral, and dorsalis pedis pulses intact. SKIN: Warm and dry with no bruises or rash. HEME/LYMPH: No tender or swollen lymph nodes. NEUROLOGIC/PSYCHIATRIC: Alert, oriented x3. Still has some hesitancy with speech and difficulty fin ding words. Cranial nerves II-XII are intact. Deep tendon reflexes symmetric. Moves all extremitie s. Toes downgoing. LABORATORY AND X-RAY FINDINGS: Chest x-ray: Cardiomegaly, question of left pleural effusion. Pacem bishop in left upper chest, reviewed by me. EKG, sinus bradycardia, first degree AV block, no acute ST -T segment changes. CT of the brain, evolutionary changes involving left-sided subdural. There is s ome left to right midline shift. Laboratory: INR 0.9. Chemistries initial potassium 5.6, followup 4.4, creatinine initial 1.51, followup 1.17. Blood sugars 100-200. Liver profile normal. Sodium no rmal. ADMITTING DIAGNOSES: 1. Expressive aphasia suggestive of acute stroke. 2. Coronary artery disease, post-coronary artery bypass graft in percutaneous coronary intervention, diabetes mellitus type 2, hypertension, dyslipidemia, paroxysmal atrial fibrillation. DISCUSSION: The patient is at necessity off of aspirin and Plavix. Dr. Johnson, neurosurgeon, has bee n consulted. The patient may have either an ischemic or embolic stroke from paroxysmal atrial fibril lation. We will also need a Cardiology consult. I have ordered an MRI for the present time. We maria m l discuss when the MRI and Dr. Johnson have seen the patient.
[2018-01-07 15:36] VITALS: TEMP 98.1
[2018-01-07 15:37] VITALS: BP 177/80
--- NOTE | 2018-01-07 17:08 | DIS ---
PRIMARY CARE PROVIDER: Dr. Tracee Elliott. FINAL DIAGNOSES: Transient expressive aphasia, atrial fibrillation, coronary artery disease, diabete s mellitus type 2, hypertension, dyslipidemia, resolving subdural hematoma. DISCHARGE MEDICATIONS: Same as his home medicines; metformin 1000 mg twice a day, glipizide 2.5 mg a day, spironolactone 25 mg a day, pravastatin 40 mg a day, losartan 50 mg a day, famotidine 20 mg a d ay, Coreg 6.25 mg twice a day, amiodarone 100 mg a day. ALLERGIES: None. DIET: Diabetic. CODE STATUS: FULL. HOSPITAL COURSE: The patient referred by the emergency department at [facility] for expressive aphasia. He has been coming and going over weeks to months. The patient has had a subdural hematoma and has been taken off his Plavix and aspirin and his neurosurgeon is adamant about him taking no anticoagulants. His neurological exam was otherwise normal. CAT scan of his br ain revealed evolutionary changes of left-sided subdural hematoma with associated left to right subfa lcine herniation. LABORATORY DATA: White count 5.9, hemoglobin 11.9, platelet count 221,000, INR 0.9. Initial comp me tabolic profile showed a creatinine of 1.5, follow up 1.17. Initial 5.6, potassium follow up 4.4. N o other significant abnormalities. I have discussed the situation with the patient. He is desirous of going home. MRI could not be don e because of his defibrillator pacemaker. I have talked to him and the at length. He is dresse d and ready to go. He is being discharged to follow up with his PCP in 1 week. No procedures were d one.
[2018-01-07] MEDS ORDERED: Atorvastatin Calcium 10 MG TAB PO SCH (21:00)
--- NOTE | 2018-01-07 22:22 | CON ---
DATE OF CONSULTATION: 01/07/2018. CONSULTING PHYSICIAN: [facility] IMPRESSION: 1. Speech arrest, likely secondary to subclinical seizures due to his subdural hematoma. 2. History of atrial fibrillation. 3. History of prior subdural hematoma. 4. Defibrillator implantation. PLAN: 1. Keppra 500 mg twice a day. 2. Antiplatelet therapy when Neurosurgery is comfortable in reestablishing this. HISTORY: Mr. Rey is an 82-year-old gentleman with past history of a subdural hematoma. He under went a jennifer hole at that time for treatment as well. His remembers that he actually had some sp eech arrest during that interval of time. Earlier this month, he suffered a recurrent subdural hemat radha. He underwent a jennifer hole and drainage by Dr. Johnson. Postoperative followup revealed there is e vidence of some acute hemorrhage present last week. He started to experiencing episodes of aphasia. He would appear to be perfectly awake during these episodes, but could not speak other than gibberis h. There was no associated facial droop or lateralized weakness. He apparently lost consciousness, unwitnessed prior around one of these episodes. The patient reports he does not have a headache or a ny other symptoms that he can identify. This has happened 4 times within the last week. He came in and had a CT scan of the brain done, which showed similar findings to his prior CT last week. There is no evidence of any acute ischemic change. He is without any complaints of headache, nausea, vomit ing, or dizziness. PAST MEDICAL HISTORY: Diabetes, hyperlipidemia, hypertension, coronary artery disease. PAST SURGICAL HISTORY: AICD. FAMILY HISTORY: Noncontributory. ALLERGIES: None reported. SOCIAL HISTORY: No tobacco or alcohol use. He is and lives independently with his . REVIEW OF SYSTEMS: No complaint of chest pain, shortness of breath, nausea, vomiting, dizziness, lat eralized weakness or numbness. PHYSICAL EXAMINATION: GENERAL: He is a well-nourished elderly man in no acute distress. VITAL SIGNS: Stable. He has been afebrile. HEENT: Small area of postsurgical entry on the left. NECK: Supple. EXTREMITIES: No cyanosis. NEUROLOGIC: He is alert and appropriate. His speech is fluent and clear. Cranial nerves II-XII are intact. Motor exam showed symmetric strength. He can walk independently. No abnormal movements we re seen. Sensation is intact to touch. IMAGING: CT scan of the brain shows a 1.6 cm area of mixed acute and chronic hemorrhage on the left involving frontoparietal convexities. SUMMARY: I suspect that his attacks are actually epileptiform in origin based on their clinical appe arance, they would like to be discharged home. I would be happy to follow up with him as an outpatie nt.
--- NOTE | 2018-01-11 12:29 | EKG ---
Test Reason : Blood Pressure : / mmHG Vent. Rate : 054 BPM Atrial Rate : 054 BPM P-R Int : 224 ms QRS Dur : 124 ms QT Int : 446 ms P-R-T Axes : 029 -24 107 degrees QTc Int : 422 ms Sinus bradycardia with marked sinus arrhythmia with 1st degree A-V block Non-specific intra-ventricular conduction delay Nonspecific ST and T wave abnormality Abnormal ECG Confirmed by MELISSA SMITH DO ([id number]), purchase request editor JOSE DANIEL SINGH ([id number]) on 01/11/2018 12:29:27 PM Referred By: Confirmed By:MELISSA SMITH DO
== END 2018-01-07 17:33 | disposition home or self-care (01) ==
LOC: ERS 17:46 → 2SE 01-07 00:58
PROVIDERS: ADMIT Hospitalist; ATTEND Hospitalist
DX: R47.01 Aphasia (principal); I62.00 Nontraumatic subdural hemorrhage, unspecified; I48.91 Unspecified atrial fibrillation; I25.10 Atherosclerotic heart disease of native coronary artery without angina pectoris; I10 Essential (primary) hypertension; E78.5 Hyperlipidemia, unspecified; I25.2 Old myocardial infarction; E11.40 Type 2 diabetes mellitus with diabetic neuropathy, unspecified; Z95.810 Presence of automatic (implantable) cardiac defibrillator; Z79.84 Long term (current) use of oral hypoglycemic drugs; Z79.899 Other long term (current) drug therapy
CPT/HCPCS: 70450; 71045; 80048; 80053; 82550; 82553; 82962 ×2; 84484; 85025 ×2; 85610; 85730; 93005; 94760; 96374; 96375; 97116; 97139; 99285; G0378; G8978; G8979; G8980; 36415; 36416; A4216; G9162-GN-CI; G9163-GN-CI; J1815

== ENCOUNTER 2018-01-09 10:53 | Outpatient (CLI) | payer MEDICARE ==
--- NOTE | 2018-01-09 12:30 | CT ---
NONCONTRAST CT HEAD: DATE: 01/09/18. HISTORY: Subdural hematoma. Followup evaluation after surgery. COMPARISON: 01/06/18. FINDINGS: Stable postsurgical changes of the calvarium are noted with a right frontoparietal and temporal crani otomy defect. A left frontal jennifer hole is again present. There is persistent extraaxial collection along the left cerebral convexity along the inner table of the skull with associated small amount of pneumocephalus which was also present on the prior exam. T he findings are again likely attributable to a subdural hematoma which does not appear significantly changed in size. There is minimal sulcal effacement on the left. There is shift of the midline stru ctures to the right measuring approximately 4 mm. Again noted are chronic small-vessel ischemic changes and cerebral volume loss. Dural-based calcifications beneath the craniotomy defect on the right. There is no evidence of hydro cephalus. Again noted is opacification of the right maxillary antrum with increased density material which may represent either inspissated secretions or fungal infection. IMPRESSION: 1. Overall stable left subdural hematoma with persistent mild shift of the midline structures to the right. There is stable mass effect on the left cerebral hemisphere. 2. The remainder of the CT scan of the head is stable from prior study. POS: [facility]
== END 2018-01-09 10:54 | disposition home or self-care (01) ==
LOC: TBSIIMAG 10:53
PROVIDERS: ATTEND Neurological Surgery
DX: S06.5X0A Traumatic subdural hemorrhage without loss of consciousness, initial encounter (principal)
CPT/HCPCS: 70450

== ENCOUNTER 2018-03-13 14:04 | Outpatient (CLI) | payer MEDICARE ==
--- NOTE | 2018-03-13 15:37 | CT ---
CT BRAIN: DATE: 03/13/18. PROVIDED CLINICAL HISTORY: Followup subdural hematoma. FINDINGS: Comparison is made with the examination dated 02/04/18. The ventricular system appears unchanged in s ize and morphology. Further interval decrease in left cerebral convexity subdural hematoma. There i s no shift of the midline structures. The basilar cisterns appear patent. Stable opacification of t he right maxillary sinus and stable postoperative change involving the right skull. Margie hole is aga in seen involving the left frontal skull. IMPRESSION: Interval decrease in size of the left cerebral convexity subdural hematoma. POS: [facility]
== END 2018-03-13 14:05 | disposition home or self-care (01) ==
LOC: TBSIIMAG 14:04
PROVIDERS: ATTEND Neurological Surgery
DX: S06.5X9A Traumatic subdural hemorrhage with loss of consciousness of unspecified duration, initial encounter (principal)
CPT/HCPCS: 70450

== ENCOUNTER 2018-06-26 09:44 | Outpatient (CLI) | payer MEDICARE ==
--- NOTE | 2018-06-26 11:50 | CT ---
BRAIN CT WITHOUT IV CONTRAST: Date: 06/26/18 HISTORY: Follow-up subdural hematoma. COMPARISON: 03/13/18, 02/04/18. FINDINGS: Status post right craniotomy and left-sided bur hole. Chronic abnormal opacification, including some hyperdense changes within the right maxillary sinus, indicating chronicity. The mastoids are clear. A trophy and chronic white matter ischemic changes are noted bilaterally. Stable left convexity chronic subdural hematoma. No evidence for acute hemorrhage. No new process. IMPRESSION: Stable left convexity chronic subdural hematoma. Atrophy and chronic white matter ischemic changes. P ostoperative changes. Stable changes right maxillary sinus. No significant new process. No acute hemo rrhage. POS: [facility]
== END 2018-06-26 09:45 | disposition home or self-care (01) ==
LOC: TBSIIMAG 09:44
PROVIDERS: ATTEND Neurological Surgery
DX: S06.5X0A Traumatic subdural hemorrhage without loss of consciousness, initial encounter (principal); G31.9 Degenerative disease of nervous system, unspecified; Z98.890 Other specified postprocedural states
CPT/HCPCS: 70450